=== PATIENT | male | born 1970 | race African-American/Black ===

== ENCOUNTER 2019-11-04 13:49 | Emergency (ER) | payer OTHER ==
[2019-11-04 13:57] VITALS: BP 144/92; PULSE 90; TEMP 98; BMI 24.3
[2019-11-04] MEDS ORDERED: DOXYCYCLINE HYCLATE 100 MG CAPSULE PO ONE ×2 (14:28→14:33)
--- NOTE | 2019-11-04 14:34 | PDOC ---
History of Present Illness - General Chief Complaint: Pain Stated Complaint: FINGER INJURY Time Seen by Provider: 11/04/19 13:59 - History of Present Illness Initial Comments: 11/04/19 14:34 Patient is a 49-year-old male who presents the ED with complaint of a right finger swelling and pain for the last 1 week. He states he was pulling off the cuticle and that is when the pain started. He denies any drainage. He denies any fevers or chills. He does admit to being a [id number] diabetic and only takes his Glucophage sometimes. He is unsure of his last A1c. He denies any other past medical history or allergies to medications. He has not taken anything for his finger pain. Past History - Past Medical History Allergies/Adverse Reactions: Allergies Allergy/AdvReac Type Severity Reaction Status Date / Time No Known Allergies Allergy Verified 11/04/19 13:53 Home Medications: Ambulatory Orders Doxycycline Hyclate 100 mg PO BID 10 Days #19 tablet 11/04/19 COPD: No Diabetes: Yes Dialysis: Yes - Immunization History Immunization Up to Date: Yes - Psycho Social/Smoking Cessation Hx Smoking Status: No Smoking History: Never smoked Number of Cigarettes Smoked Daily: 0 Review of Systems - Review of Systems Comments:: 11/04/19 14:35 - Review of Systems Able to Perform ROS?: Yes Constitutional: No: Fever, Chills, Loss of Appetite, Night Sweats, Weakness HEENTM: No: Eye Pain, Vision changes, Ear Pain, Throat Pain, Throat Swelling, Mouth Pain, Difficulty Swallowing Respiratory: No: Cough, Shortness of Breath, Wheezing, Sputum Production Cardiac (ROS): No: Chest Pain, Chest Tightness, Palpitations, Irregular Heart Beat, Edema ABD/GI: No: Nausea, Vomiting, Abdominal Pain, Diarrhea Musculoskeletal: No: Muscle Pain, Back Pain, Muscle Weakness, Neck Pain; + Right middle finger pain and swelling Integumentary: No: Lesions, Rash, + right middle finger erythema and paronychia Neurological: No: Headache, Numbness, Tingling, Weakness, Speech Difficulties *Physical Exam - Vital Signs Last Vital Signs Temp Pulse Resp BP Pulse Ox 98 F 90 18 144/92 100 11/04/19 13:50 11/04/19 13:50 11/04/19 13:50 11/04/19 13:50 11/04/19 13:50 - Physical Exam 11/04/19 14:36 - Physical Exam General Appearance: Nourished, Appropriately Dressed, No Distress Neck: Supple, No Lymphadenopathy (R), No Lymphadenopathy (L), No Rigidity, No Decreased range of motion Respiratory/Chest: Lungs Clear, Normal Breath Sounds. No Respiratory Distress, No Accessory Muscle Use Cardiovascular: Regular Rhythm, Regular Rate, S1, S2 Musculoskeletal: R middle finger with a large paronychia appreciated. No felon appreciated. No active drainage. No red streaking. FROM at the DIP, PIP and MCP of the R middle finger. Brisk capillary refill distally. 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 Pt tolerated the procedure well and pain significantly decreased compared to prior. Medical Decision Making - Medical Decision Making 11/04/19 14:29 Patient is a 49-year-old male with a right middle finger paronychia that was I indeed in the emergency department. A sterile 4 x 4 dressing was placed. A dose of doxycycline was given to him in the ED and we will discharge him on doxycycline for home. The patient is diabetic and has been made aware that he must follow-up with his primary doctor within the next few days for a wound check and if he is unable to see her he must return to the ED for a wound check. He has been given instructions on how to keep his finger clean with warm water soaks and washing his finger twice daily with warm water and soap. He understands and agrees with this treatment plan and he is stable for discharge. Discharge - Discharge Information Problems reviewed: Yes Clinical Impression/Diagnosis: Paronychia of right middle finger Condition: Stable Disposition: HOME - Additional Discharge Information Prescriptions: Doxycycline Hyclate 100 mg PO BID 10 Days #19 tablet - Follow up/Referral Referrals: Mikki Wood MD [Primary Care Provider] - - Patient Discharge Instructions Patient Printed Discharge Instructions: DI for Paronychia Additional Instructions: Keep the finger clean and dry. Starting tomorrow morning wash the finger once daily with warm water and soap and be sure to express the finger to help remove the infection. Allow the finger to dry completely and then you can cover again with a regular Band-Aid. You can do daily warm soaks to help the infection heal. Take the antibiotics as prescribed and complete the entire course. You must follow-up with your primary doctor within the next 2 to 3 days for a wound check. If you are unable to follow-up with your primary doctor return to the ED for wound check in 3 days. - Post Discharge Activity
== END 2019-11-04 14:43 | disposition home or self-care (01) ==
LOC: JERFT 13:49
PROC: 0J9J0ZZ Drainage of Right Hand Subcutaneous Tissue and Fascia, Open Approach (ICD-10-PCS; principal; 2019-11-04)
DX: L03.011 Cellulitis of right finger (principal); E11.9 Type 2 diabetes mellitus without complications; Z79.84 Long term (current) use of oral hypoglycemic drugs; Z91.14 Patient's other noncompliance with medication regimen
CPT/HCPCS: 10060; 99281-25